=== PATIENT | male | born 1955 | race Caucasian/White ===

== ENCOUNTER 2018-12-13 06:56 | Observation (INO) | payer OTHER ==
[~2018-12-13] VITALS: Ht 185.4 cm; Wt 137.1 kg
[~2018-12-13 06:56] MED LIST: BLOOD PRESSURE MED PO; PAXIL30 MG PO; SIMVASTATIN20 MG PO; SYNTHROID50 MCG PO; WELLBUTRIN SR150 MG PO
[2018-12-13] MEDS ORDERED: CELECOXIB 200 MG CAP ONE (07:10)
[2018-12-13] MEDS ORDERED: DEXAMETHASONE SOD PHOS 10 MG/1 ML VIAL ONE (07:11)
[2018-12-13] MEDS ORDERED: CEFAZOLIN SOD 2 GM/D5W 50ML 50 ML IV ONE (07:11)
[2018-12-13] MEDS ORDERED: GABAPENTIN 300 MG CAP ONE (07:11)
[2018-12-13] MEDS ORDERED: FENOFIBRATE PO (07:20)
[2018-12-13] MEDS ORDERED: LISINOPRIL-HCT1 EACH PO (07:20)
[2018-12-13] MEDS ORDERED: ROPIVACAINE 246.25 MG, EPINEPHRINE HCL 1:1000 0.5 MG, CLONIDINE HCL 0.08 MG, KETOROLAC ... INJ ONE ×5 (07:30)
[2018-12-13] MEDS ORDERED: VANCOMYCIN HCL 500 MG ONE (09:43)
[2018-12-13] MEDS ORDERED: TRANEXAMIC ACID 1,000 MG/10 ML ML ONE (09:43)
[2018-12-13] MEDS ORDERED: BACITRACIN 50,000 UNIT VIAL ONE (09:44)
[2018-12-13] MEDS ORDERED: SODIUM CHLORIDE 0.9% 500ML 500 ML ONE (09:44)
[2018-12-13] MEDS ORDERED: KETOROLAC TROMETHAMINE 30 MG/ML VIAL IV PRN (12:00)
[2018-12-13] MEDS ORDERED: DIPHENHYDRAMINE HCL INJ 50 MG/ML VIAL IM/IV PRN (12:00)
[2018-12-13] MEDS ORDERED: ACETAMINOPHEN 650 MG SUPP PR PRN (12:00)
[2018-12-13] MEDS ORDERED: HYDROCODONE/APAP 5MG-325MG TAB PO PRN (12:00)
[2018-12-13] MEDS ORDERED: DOCUSATE SODIUM 100 MG CAP PO PRN (12:00)
[2018-12-13] MEDS ORDERED: ONDANSETRON HCL INJ 2 MG/ML VIAL IV PRN (12:00)
[2018-12-13] MEDS ORDERED: PROMETHAZINE HCL (IM) 25 MG/ML VIAL IM PRN (12:00)
[2018-12-13] MEDS ORDERED: HYDROMORPHONE 2MG/ML 2 MG/ML ML ONE (12:15)
--- NOTE | 2018-12-13 13:45 | NUR ---
PATIENT REC'D TO 105 AT THIS TIME FROM PACU. VSS WITH EVEN AND UNLABORED RESPIRATIONS ON 2LPNC. PT DENIES PAIN AT THIS TIME. DRESSING TO RLL IS C/D/I; ANAND HOSE INTACT; FOOT PUMPS ON. CALL LIGHT IN REACH WITH INSTRUCTIONS TO CALL FOR ASSISTANCE.
--- NOTE | 2018-12-13 13:47 | Diagnostic Imaging Report ---
Exam: Right knee 2 views History: Postoperative Comparison: None. Findings: See impression Impression: Post surgical changes related to total right knee arthroplasty with intact surgical hardware and no periprosthetic displaced fracture. Overlying skin lora and subcutaneous gas. Signed by: Dr. Evangelista Avendano M.D. on 12/13/2018 1:44 PM
[2018-12-13 14:00] VITALS: BP 121/60
[2018-12-13 14:09] VITALS: BP 121/60
--- NOTE | 2018-12-13 14:24 | Operative Report ---
DATE OF PROCEDURE: December 13, 2018 VALVE MAKER: Fermin Cruz PA-C The patient was brought to the operating room for induction of anesthesia. Throughout this case, my PA's assistance was necessary for retraction of soft tissue and positioning of the extremity. This allows for efficient and technically successful execution of the operation and is considered medically necessary. PREOPERATIVE DIAGNOSES 1. Osteoarthritis, right knee. 2. Morbid obesity. POSTOPERATIVE DIAGNOSES 1. Osteoarthritis, right knee. 2. Morbid obesity. PROCEDURE: Right total knee arthroplasty, *added complexity secondary to body mass index greater than 41. INDICATIONS: The patient is a 63-year-old gentleman with end-stage arthritis of his right knee. He has failed conservative management and would like to proceed with a right total knee replacement. The risks and benefits of the procedure have been discussed. The added potential for perioperative complications due to his BMI over 41 has been explained. He states he understands and wishes to proceed. He is working on weight loss. DESCRIPTION OF PROCEDURE: The patient was brought to the operating room and placed under general anesthetic. He received prophylactic antibiotics, a regional block and tranexamic acid in the holding area. His right lower extremity was prepped and draped in a sterile manner. A preoperative time out was performed. An anterior incision with a medial parapatellar arthrotomy was performed. Extensive chronic prepatellar bursitis was encountered. Soft-tissue releases were performed to bring the knee up into flexion with the patella everted. Added challenges were encountered due to the altered surgical field secondary to his body mass index. The cruciate ligaments were sacrificed. A Chavez and Nephew posterior stabilized Legion knee system was used throughout the case. An extramedullary cutting guide was used to resect the proximal tibia. The cut was referenced off of the medial compartment where there was exposed subchondral bone. The tibial baseplate was sized at a number 7 component. The central fin punch was impacted, and attention was directed towards the distal femur. An intramedullary cutting guide was used to resect the distal femur in 6 degrees of valgus and 3 degrees of external rotation. External rotation was also referenced off of the posterior condyle, the epicondylar axis and Emperatriz's line. The femoral component was a size number 8. The anterior, posterior, and notch cuts were made. Trial reductions were performed. A 9-mm posterior stabilized tibial insert was felt to provide appropriate soft-tissue balancing in flexion and extension. Once again, some challenges were encountered due to the patient's size. The patella was resurfaced with a 35-mm x 9-mm patellar button. The thickness was checked before and after and was 25 mm. Patellar tracking was noted to be concentric. The trial implants were then all removed. A 100-mL premixed pericapsular DEON injection was placed into the surrounding soft tissue. The knee was thoroughly irrigated with a shower-tip pulsatile lavage. Additional irrigation had been performed during the bone cuts using Polymycin and vancomycin. The components were cemented into place using a single mix of high-viscosity Simplex cement preloaded with antibiotics. Care was taken to remove extravasated cement. The wound was further irrigated while the cement cured. The arthrotomy was closed with interrupted #1 Ethibond. The knee was put through flexion and extension to ensure a secure closure. The skin was closed with subcuticular Vicryl and lora. A sterile Aquacel bandage was applied. The patient was extubated and transported to the recovery room in stable condition. Blood loss was minimal. All needle and sponge counts were correct. Job#: [id number]
[2018-12-13] MEDS: ACETAMINOPHEN 1000 MG/100 ML IV SCH ×3 (15:15→23:29)
[2018-12-13] MEDS: SODIUM CHLORIDE 0.9% 1000ML 1,000 ML IV SCH ×2 (15:15→21:46)
[2018-12-13] MEDS: ASPIRIN 325 MG TAB PO SCH (16:54)
[2018-12-13] MEDS: CELECOXIB 200 MG CAP PO SCH (16:54)
[2018-12-13] MEDS ORDERED: CELECOXIB 100 MG CAP PO SCH (17:00)
[2018-12-13] MEDS: CEFAZOLIN SOD 1 GM/D5W 50ML 50 ML IV SCH (17:34)
--- NOTE | 2018-12-13 17:40 | NUR ---
Dr. Khan contacted and made aware of consultation for medical management.
[2018-12-13] MEDS ORDERED: LIDOCAINE HCL 2% LOCAL 20 ML VIAL ONE (18:34)
[2018-12-13] MEDS ORDERED: BUPIVACAINE 0.5%/EPI 30 ML SDV INJ ONE (18:34)
[2018-12-13] MEDS ORDERED: EPINEPHRINE HCL INJ 1 MG/ML AMP ONE (18:34)
--- NOTE | 2018-12-13 18:48 | NUR ---
WALKING ROUNDS PERFORMED, RECEIVED PT LAYING SEMI FOWLERS IN BED, AAOX3, RR EVEN AND NON-LABORED, ON RA. NO S/SX OF DISTRESS NOTED. ALIS WRAP TO (R) LEG NOTED TO BE CDI. LEFT PT LAYING SEMI FOWLERS IN BED, BED IN LOW LOCKED POSITION, SIDE RAILS UPX2, CALL LIGHT AND PHONE WITHIN REACH.
--- NOTE | 2018-12-13 18:51 | NUR ---
HANDOFF REPORT AND WALKING ROUNDS WITH INCOMING TRIMMING MACHINE OPERATOR NURSE.
[2018-12-13] MEDS ORDERED: MIDAZOLAM HCL 2 MG/2 ML VIAL ONE (18:52)
[2018-12-13] MEDS ORDERED: FENTANYL CITRATE/PF 100MCG/2 ML INJ ONE (18:52)
[2018-12-13] MEDS ORDERED: ONDANSETRON HCL INJ 2 MG/ML VIAL ONE (19:24)
[2018-12-13] MEDS ORDERED: GLYCOPYRROLATE INJ 1MG/ 5 ML SYR ONE (19:24)
[2018-12-13] MEDS ORDERED: PROPOFOL IV EMULSION 10 MG/ML 20 ML VIAL ONE (19:24)
[2018-12-13] MEDS ORDERED: LIDOCAINE HCL 2% LOCAL INJ 5 ML SDV VIAL INJ ONE (19:24)
[2018-12-13] MEDS ORDERED: SEVOFLURANE INHAL SOLN 250 ML PEN BTL ONE (19:24)
[2018-12-13 20:00] VITALS: BP_SYST 114; BP_SYST 123; BP_DIAS 57; BP_DIAS 67
[2018-12-13 20:36] VITALS: BP 114/57
[2018-12-13] MEDS: CEPACOL SORE THROAT LOZENGES PO PRN (20:47)
[2018-12-13] MEDS ORDERED: ZOLPIDEM TARTRATE 5 MG TAB PO PRN (21:00)
[2018-12-14] VITALS: BP 100/56
[2018-12-14] MEDS: CEPACOL SORE THROAT LOZENGES PO PRN ×2 (00:50→04:25)
[2018-12-14] MEDS: HYDROCODONE/APAP 7.5MG-325MG 1 EA TAB PO PRN ×3 (01:00→11:05)
[2018-12-14] MEDS: CEFAZOLIN SOD 1 GM/D5W 50ML 50 ML IV SCH ×2 (02:00→10:45)
[2018-12-14 04:00] VITALS: BP 118/57
[2018-12-14] MEDS: ACETAMINOPHEN 1000 MG/100 ML IV SCH (04:24)
[2018-12-14 05:54] LABS: HEMATOCRIT 41.2 % (38.2-49.6); HEMOGLOBIN 13.7 g/dL (14.0-18.0)
--- NOTE | 2018-12-14 06:19 | NUR ---
ALIS WRAP FROM (R)LE REMOVED. DRESSING INTACT TO (R) KNEE. APPLIED ANAND HOSE TO (R)LE.
--- NOTE | 2018-12-14 07:00 | NUR ---
RECEIVED SHIFT CHANGE ROUNDING REPORT FROM NIGHT RN. PT DENIES NEEDS AT THIS TIME.
[2018-12-14 08:07] VITALS: BP 117/65
[2018-12-14] MEDS: SODIUM CHLORIDE 0.9% 1000ML 1,000 ML IV SCH (08:32)
[2018-12-14] MEDS: CELECOXIB 200 MG CAP PO SCH (08:33)
[2018-12-14] MEDS: ASPIRIN 325 MG TAB PO SCH (08:33)
[2018-12-14 09:00] VITALS: BP 117/65
[2018-12-14] MEDS ORDERED: ASPIRIN325 MG PO (09:07)
--- NOTE | 2018-12-14 10:52 | NUR ---
CASE MANAGEMENT INITIAL ASSESSMENT Wide Area Network Administrator to bedside to discuss plan of care with patient/family. CM/SW role and care transitions discussed. Anticipated discharge plan discussed along with duration of care. CM discussed patients right to make decisions in care. CM/SW work hours given. Patient lives: PATIENT LIVES IN 1 STORY HOME WITH IN [facility] Admit/Transfer: OR POA/Emergency contact: - RENNY BONNER- [phone] Current/Previous Home Health: [facility] PCP/Follow-up Care: DR. DEVAUGHN GOMEZ Current/Previous DME: [facility], [facility], 3-IN-1 [employer] Other Services: NONE Employment Status: EMPLOYED Areas of Concerns: NONE AT THIS TIME Referral Needs: NONE Education Needs: NONE IMM/SCHWARTZ given and signed (if applicable): CM SPOKE TO PATIENT AT BEDSIDE REGARDING SCHWARTZ LETTER. SCHWARTZ LETTER GIVEN WITH EXPLANATION. ORIGINAL SIGNED AND PLACED IN CHART; COPY OF ORIGINAL DOCUMENT GIVEN TO PATIENT AT BEDSIDE AND PLACED IN CARE TRANSITION FOLDER. CM CONTACT INFORMATION GIVEN TO PATIENT FOR ANY NEEDS OR CONCERNS. PATIENT WITH NO FURTHER QUESTIONS. Goal for discharge: PATIENT TO DISCHARGE WITH PRE-ARRANGED HOME HEALTH SERVICES AND DME DME PLUS SOLUTION : (WALKER WITH WHEELS, [facility], 3-IN-1 [employer]) (P) [phone] (F) [phone] [facility] (P)[phone] (F) [phone] CM left business card at the bedside with contact information. Name and number was also written on the patients whiteboard. Patient verbalized understanding of discussion. CM will follow-up with ongoing discharge and transition of care needs.
[2018-12-14] MEDS ORDERED: ACETAMINOPHEN 1000 MG/100 ML IV PRN (12:00)
[2018-12-14 13:06] VITALS: BP 132/78
[2018-12-14] MEDS ORDERED: NORCO 7.5-3251 EACH PO (13:47)
== END 2018-12-14 14:10 | disposition home health service (06) ==
LOC: OR 06:56 → PACU V 11:48 → MED/SURG 13:53
PROVIDERS: ADMIT Specialist; ATTEND Specialist
DX: M17.11 Unilateral primary osteoarthritis, right knee (principal); Z88.7 Allergy status to serum and vaccine; I10 Essential (primary) hypertension; J45.909 Unspecified asthma, uncomplicated; M16.12 Unilateral primary osteoarthritis, left hip; G47.33 Obstructive sleep apnea (adult) (pediatric); E78.5 Hyperlipidemia, unspecified; Z86.19 Personal history of other infectious and parasitic diseases; E66.01 Morbid (severe) obesity due to excess calories; Z68.41 Body mass index [BMI] 40.0-44.9, adult; Z01.812 Encounter for preprocedural laboratory examination; D64.9 Anemia, unspecified
CPT/HCPCS: 27447; 36415; 73560; 85014; 85018; 86850; 86900; 86920; 97110; 97116 ×2; 97161; 97530; C1713; G0378 ×2; J0131; J0171; J0690 ×3; J1100; J1170; J1885; J2001 ×2; J2250; J2405; J2704; J2795; J3370; J3490; J7030 ×2; J7040

== ENCOUNTER → 2019-01-26 | Outpatient (RCR) | payer OTHER ==
[~2019-01-26] MED LIST changes: +ASPIRIN325 MG PO; +FENOFIBRATE PO; +LISINOPRIL-HCT1 EACH PO; +NORCO 7.5-3251 EACH PO
== END ==
LOC: PT 01-13 12:14
PROVIDERS: ATTEND Specialist
DX: Z96.651 Presence of right artificial knee joint (principal); Z47.1 Aftercare following joint replacement surgery

== ENCOUNTER 2019-02-10 08:00 | Outpatient (RCR) | payer OTHER | END 2019-02-26 | LOC: PT 08:00 | PROVIDERS: ATTEND Specialist | DX: Z96.651 Presence of right artificial knee joint (principal); Z47.1 Aftercare following joint replacement surgery; M25.561 Pain in right knee; M25.461 Effusion, right knee; M62.81 Muscle weakness (generalized) ==

== ENCOUNTER → 2021-02-20 | Day surgery (SDC) | payer MEDICARE ==
[2021-02-17 09:54] LABS: BASOPHILS # (AUTO) 0.1 (0.0-0.1); BASOPHILS % 0.8 % (0.0-1.0); EOSINOPHILS # (AUTO) 0.2 (0.0-0.4); EOSINOPHILS % 2.4 % (0.0-6.0); HEMATOCRIT 53.6 % (38.2-49.6); LYMPHOCYTES % 12.8 % (18.0-39.1); MEAN CORPUSCULAR HEMOGLOBIN 32.6 pg (28-32); MEAN CORPUSCULAR HGB CONC 33.6 g/dL (31-35); MEAN CORPUSCULAR VOLUME 97.1 fL (81-99); MONOCYTES % 12.1 % (4.4-11.3); NEUTROPHILS # (AUTO) 5.6 (2.1-6.9); PLATELET COUNT 197 x10e3/uL (140-360); RED BLOOD COUNT 5.52 x10e6/uL (4.3-5.7); RED CELL DISTRIBUTION WIDTH 14.4 % (11.7-14.4)
[~2021-02-20] MED LIST changes: +ASPIRIN81 MG PO; +ATORVASTATIN CA20 MG PO; +CLOPIDOGREL75 MG PO; +LASIX40 MG PO; +LEVOTHYROXINE200 MCG PO; +LIDOCAINE HCL 2% LOCAL INJ 5 ML SDV VIAL INJ ONE; +LISINOPRIL-HCT1 EAC1 PO; +METOPROLOL SUCC25 MG PO; +MIDAZOLAM HCL 2 MG/2 ML VIAL ONE; +PROPOFOL IV EMULSION 10 MG/ML 20 ML VIAL ONE
[2021-02-20 11:25] VITALS: BP 129/84
== END | disposition home or self-care (01) ==
LOC: OR 07:32
PROVIDERS: ATTEND Internal Medicine Gastroenterology
DX: Z12.11 Encounter for screening for malignant neoplasm of colon (principal); D12.3 Benign neoplasm of transverse colon; D12.4 Benign neoplasm of descending colon; K57.30 Diverticulosis of large intestine without perforation or abscess without bleeding; K64.8 Other hemorrhoids; Z71.3 Dietary counseling and surveillance; G47.33 Obstructive sleep apnea (adult) (pediatric); I10 Essential (primary) hypertension; E66.01 Morbid (severe) obesity due to excess calories; E03.9 Hypothyroidism, unspecified; J45.909 Unspecified asthma, uncomplicated; I25.810 Atherosclerosis of coronary artery bypass graft(s) without angina pectoris; B19.10 Unspecified viral hepatitis B without hepatic coma; E78.5 Hyperlipidemia, unspecified; F32.9 Major depressive disorder, single episode, unspecified; Z88.7 Allergy status to serum and vaccine; Z01.810 Encounter for preprocedural cardiovascular examination; Z01.812 Encounter for preprocedural laboratory examination; Z20.822 Contact with and (suspected) exposure to COVID-19; Z79.02 Long term (current) use of antithrombotics/antiplatelets; Z79.82 Long term (current) use of aspirin; Z68.41 Body mass index [BMI] 40.0-44.9, adult; Z95.1 Presence of aortocoronary bypass graft
CPT/HCPCS: 36415; 45385; 85025; 93005; J2001; J2250; J2704; U0002; 45378; 45380

== ENCOUNTER 2022-01-21 09:00 | Outpatient (RCR) | payer MEDICARE ==
[~2022-01-21 09:00] MED LIST changes: -LIDOCAINE HCL 2% LOCAL INJ 5 ML SDV VIAL INJ ONE; -MIDAZOLAM HCL 2 MG/2 ML VIAL ONE; -PROPOFOL IV EMULSION 10 MG/ML 20 ML VIAL ONE
== END 2022-01-26 ==
LOC: PT 09:00
PROVIDERS: ATTEND Physician Assistant
DX: M16.0 Bilateral primary osteoarthritis of hip (principal); M54.50 Low back pain, unspecified; G89.29 Other chronic pain

== ENCOUNTER 2022-02-24 10:59 | Outpatient (RCR) | payer MEDICARE | END 2022-02-26 | LOC: PT 10:59 | PROVIDERS: ATTEND Physician Assistant | DX: M16.0 Bilateral primary osteoarthritis of hip (principal); M54.50 Low back pain, unspecified; G89.29 Other chronic pain ==

== ENCOUNTER 2022-03-06 08:56 | Outpatient (RCR) | payer MEDICARE | END 2022-03-28 | LOC: PT 08:56 | PROVIDERS: ATTEND Physician Assistant | DX: M16.0 Bilateral primary osteoarthritis of hip (principal); M54.50 Low back pain, unspecified; G89.29 Other chronic pain ==

== ENCOUNTER → 2022-03-31 | Day surgery (SDC) | payer MEDICARE ==
[2022-03-30 10:17] LABS: BASOPHILS # (AUTO) 0.1 (0.0-0.1); EOSINOPHILS # (AUTO) 0.4 (0.0-0.4); EOSINOPHILS % 4.5 % (0.0-6.0); HEMATOCRIT 51.2 % (38.2-49.6); HEMOGLOBIN 17.1 g/dL (14.0-18.0); LYMPHOCYTES # (AUTO) 1.5 (1.0-3.2); LYMPHOCYTES % 17.1 % (18.0-39.1); MEAN CORPUSCULAR HEMOGLOBIN 32.5 pg (28-32); MEAN CORPUSCULAR HGB CONC 33.4 g/dL (31-35); MEAN CORPUSCULAR VOLUME 97.3 fL (81-99); MONOCYTES # (AUTO) 1.2 (0.2-0.8); MONOCYTES % 13.3 % (4.4-11.3); NEUTROPHILS # (AUTO) 5.4 (2.1-6.9); NEUTROPHILS % 61.9 % (38.7-80.0); PLATELET COUNT 214 x10e3/uL (140-360); RED BLOOD COUNT 5.26 x10e6/uL (4.3-5.7); RED CELL DISTRIBUTION WIDTH 13.8 % (11.7-14.4)
[~2022-03-31] MED LIST changes: +BUPIVACAINE HCL 0.5% 10ML MPF VIAL INJ ONE; +FENTANYL CITRATE/PF 100MCG/2 ML INJ ONE; +IOPAMIDOL 200 MG/ML 20 ML VIAL IT ONE; +LIDOCAINE HCL 1% LOCAL INJ 20 ML VIAL ONE; +MIDAZOLAM HCL 2 MG/2 ML VIAL ONE; +POVIDONE IODINE 0.05% 0.05 % ML PO ONE; +PROPOFOL IV EMULSION 10 MG/ML 20 ML VIAL ONE; +TRIAMCINOLONE ACET 40 MG/ML VIAL ONE
[2022-03-31 10:55] VITALS: BP 142/88
== END ==
LOC: OR 07:29
PROVIDERS: ATTEND Specialist
DX: M16.12 Unilateral primary osteoarthritis, left hip (principal); I10 Essential (primary) hypertension; I25.10 Atherosclerotic heart disease of native coronary artery without angina pectoris; J45.909 Unspecified asthma, uncomplicated; Z01.812 Encounter for preprocedural laboratory examination; Z11.52 Encounter for screening for COVID-19; Z01.810 Encounter for preprocedural cardiovascular examination; Z79.899 Other long term (current) drug therapy; Z79.82 Long term (current) use of aspirin
CPT/HCPCS: 36415; 77002; 85025; 93005; J2001; J2250; J3010; J3301; Q9967; U0002

== ENCOUNTER 2022-12-28 06:18 | Observation (INO) | payer MEDICARE ==
[2022-12-25 10:21] LABS: BASOPHILS # (AUTO) 0.1 (0.0-0.1); BASOPHILS % 0.7 % (0.0-1.0); EOSINOPHILS # (AUTO) 0.3 (0.0-0.4); EOSINOPHILS % 2.3 % (0.0-6.0); HEMATOCRIT 51.8 % (38.2-49.6); HEMOGLOBIN 16.3 g/dL (14.0-18.0); LYMPHOCYTES # (AUTO) 1.2 (1.0-3.2); LYMPHOCYTES % 10.3 % (18.0-39.1); MEAN CORPUSCULAR HEMOGLOBIN 32.1 pg (28-32); MEAN CORPUSCULAR HGB CONC 31.5 g/dL (31-35); MONOCYTES # (AUTO) 1.3 (0.2-0.8); MONOCYTES % 11.6 % (4.4-11.3); NEUTROPHILS # (AUTO) 8.3 (2.1-6.9); NEUTROPHILS % 73.7 % (38.7-80.0); PLATELET COUNT 265 x10e3/uL (140-360); RED BLOOD COUNT 5.08 x10e6/uL (4.3-5.7); RED CELL DISTRIBUTION WIDTH 13.5 % (11.7-14.4)
[2022-12-25 10:38] LABS: ANION GAP 13.2 mmol/L (8-16); CALCIUM 9.7 mg/dL (8.4-10.2); CREATININE, SERUM 1.62 mg/dL (0.72-1.25); POTASSIUM 4.2 mmol/L (3.5-5.1)
[~2022-12-28] VITALS: Ht 185.4 cm; Wt 137.0 kg
[~2022-12-28 06:18] MED LIST changes: +AMIODARONE HCL200 MG PO; -BUPIVACAINE HCL 0.5% 10ML MPF VIAL INJ ONE; +CELEBREX200 MG PO; +ELIQUIS5 MG PO; -FENTANYL CITRATE/PF 100MCG/2 ML INJ ONE; -IOPAMIDOL 200 MG/ML 20 ML VIAL IT ONE; -LIDOCAINE HCL 1% LOCAL INJ 20 ML VIAL ONE; -MIDAZOLAM HCL 2 MG/2 ML VIAL ONE; -POVIDONE IODINE 0.05% 0.05 % ML PO ONE; +PRIMATENE ASTH1 EACH PO; -PROPOFOL IV EMULSION 10 MG/ML 20 ML VIAL ONE; +TESTOSTERO100 MG/1 M SC; -TRIAMCINOLONE ACET 40 MG/ML VIAL ONE
[2022-12-28] MEDS ORDERED: GABAPENTIN 300 MG CAP ONE (06:40)
[2022-12-28] MEDS ORDERED: DEXAMETHASONE SOD PHOS 10 MG/1 ML VIAL ONE (06:40)
[2022-12-28] MEDS ORDERED: CEFAZOLIN SODIUM 2 GM ONE (06:40)
[2022-12-28] MEDS ORDERED: CELECOXIB 200 MG CAP ONE (06:40)
[2022-12-28] MEDS ORDERED: SODIUM CHLORIDE 0.9% 500ML 500 ML ONE (07:24)
[2022-12-28] MEDS ORDERED: TRANEXAMIC ACID 20 ML ONE (07:24)
[2022-12-28] MEDS ORDERED: Vancomycin IV 1,000 MG ONE (07:24)
[2022-12-28] MEDS ORDERED: SUGAMMADEX SODIUM 200 MG/2 ML VIAL IV ONE (07:34)
[2022-12-28] MEDS ORDERED: ROPIVACAINE 246.25 MG, EPINEPHRINE HCL 1:1000 1ML 0.5 MG, CLONIDINE HCL 0.08 MG, KETORO... INJ ONE ×5 (08:00)
[2022-12-28] MEDS ORDERED: MIDAZOLAM HCL 2 MG/2 ML VIAL ONE (08:04)
[2022-12-28] MEDS ORDERED: FENTANYL CITRATE/PF 100MCG/2 ML INJ ONE ×3 (08:04→13:00)
[2022-12-28] MEDS ORDERED: HYDROMORPHONE 2MG/ML 2 MG/ML ML ONE (08:42)
[2022-12-28] MEDS ORDERED: DIPHENHYDRAMINE HCL INJ 50 MG/ML VIAL IV PRN (09:45)
[2022-12-28] MEDS ORDERED: HYDROCODONE/APAP 7.5MG-325MG 1 EA TAB PO PRN (09:45)
[2022-12-28] MEDS ORDERED: ZOLPIDEM TARTRATE 5 MG TAB PO PRN (09:45)
[2022-12-28] MEDS ORDERED: DOCUSATE SODIUM 100 MG CAP PO PRN (09:45)
[2022-12-28] MEDS ORDERED: SODIUM CHLORIDE 0.9% 1000ML 1,000 ML IV SCH (09:45)
[2022-12-28] MEDS ORDERED: ACETAMINOPHEN 650 MG SUPP PR PRN (09:45)
[2022-12-28] MEDS ORDERED: HYDROCODONE/APAP 5MG-325MG TAB PO PRN (09:45)
[2022-12-28] MEDS ORDERED: ONDANSETRON HCL INJ 2MG/ML 2ML 2 MG/ML VIAL IV PRN (09:45)
[2022-12-28 12:50] VITALS: BP_SYST 118; BP_SYST 119; BP_DIAS 60; BP_DIAS 90
[2022-12-28] MEDS ORDERED: KETOROLAC TROMETHAMINE 30 MG/ML VIAL ONE (12:55)
[2022-12-28] MEDS ORDERED: ETOMIDATE 2 MG/ML 10 ML INJ IV ONE (12:55)
[2022-12-28] MEDS ORDERED: PROPOFOL IV EMULSION 10 MG/ML 20 ML VIAL ONE (12:55)
[2022-12-28] MEDS ORDERED: ONDANSETRON HCL INJ 2MG/ML 2ML 2 MG/ML VIAL ONE (12:55)
[2022-12-28] MEDS ORDERED: ATROPINE SULFATE 1 MG/ML VIAL ONE (12:55)
[2022-12-28] MEDS ORDERED: NEOSTIGMINE 1 MG/ML 10ML VIAL ONE (12:55)
[2022-12-28] MEDS ORDERED: ROCURONIUM BROMIDE 10 MG/ML 5ML VIAL IV ONE (12:55)
[2022-12-28] MEDS ORDERED: DEXAMETHASONE SOD PHOS INJ 4 MG/ML SDV ONE (12:55)
[2022-12-28] MEDS ORDERED: LIDOCAINE HCL 2% LOCAL INJ 5 ML SDV VIAL INJ ONE (12:55)
[2022-12-28] MEDS ORDERED: METOCLOPRAMIDE HCL 10 MG/2ML VIAL ONE (12:55)
[2022-12-28] MEDS ORDERED: POVIDONE IODINE 0.05% 0.05 % ML PO ONE (12:55)
[2022-12-28] MEDS ORDERED: SEVOFLURANE INHAL SOLN 250 ML PEN BTL ONE (12:55)
[2022-12-28 12:59] VITALS: BP 119/60
[2022-12-28] MEDS ORDERED: ROPIVACAINE 0.5% 5 MG/ML 30 ML SDV ONE (13:00)
[2022-12-28 15:47] VITALS: BP 99/73
[2022-12-28] MEDS ORDERED: CELECOXIB 100 MG CAP PO SCH (17:00)
[2022-12-28] MEDS ORDERED: ASPIRIN 325 MG TAB PO SCH (17:00)
[2022-12-29] MEDS ORDERED: CELECOXIB 200 MG CAP PO SCH (09:00)
[2022-12-29] MEDS ORDERED: ACETAMINOPHEN 1000 MG/100 ML IV PRN (09:45)
== END 2022-12-28 19:02 | disposition home or self-care (01) ==
LOC: OR 06:18 → PACU V 09:45 → MED/SURG 12:50
PROVIDERS: ADMIT Specialist; ATTEND Specialist
DX: M16.12 Unilateral primary osteoarthritis, left hip (principal); I11.9 Hypertensive heart disease without heart failure; J45.909 Unspecified asthma, uncomplicated; Z79.899 Other long term (current) drug therapy; Z88.7 Allergy status to serum and vaccine; I25.10 Atherosclerotic heart disease of native coronary artery without angina pectoris; Z95.1 Presence of aortocoronary bypass graft; E03.9 Hypothyroidism, unspecified; E78.5 Hyperlipidemia, unspecified; E66.8 Other obesity; Z68.31 Body mass index [BMI] 31.0-31.9, adult
CPT/HCPCS: 0223U; 27130; 36415; 71046; 72170; 80048; 85025; 86850; 86900; 86920; 94799; 97116; 97161; 97530; C1713 ×2; C1776 ×2; G0378; J0171; J0461; J0690; J1100 ×2; J1170; J1200; J1885; J2001; J2250; J2405; J2704; J2710; J2765; J2795; J3010; J3370; J7030; J7040

== ENCOUNTER 2023-02-02 07:02 | Inpatient (IN) | payer MEDICARE ==
[2023-01-29 09:15] LABS: BASOPHILS # (AUTO) 0.1 (0.0-0.1); BASOPHILS % 0.6 % (0.0-1.0); EOSINOPHILS # (AUTO) 0.1 (0.0-0.4); EOSINOPHILS % 0.9 % (0.0-6.0); HEMATOCRIT 38.7 % (38.2-49.6); HEMOGLOBIN 12.5 g/dL (14.0-18.0); LYMPHOCYTES % 8.9 % (18.0-39.1); MEAN CORPUSCULAR HEMOGLOBIN 30.9 pg (28-32); MEAN CORPUSCULAR HGB CONC 32.3 g/dL (31-35); MEAN CORPUSCULAR VOLUME 95.8 fL (81-99); MONOCYTES # (AUTO) 0.7 (0.2-0.8); MONOCYTES % 6.1 % (4.4-11.3); NEUTROPHILS # (AUTO) 8.3 (2.1-6.9); NEUTROPHILS % 77.1 % (38.7-80.0); PLATELET COUNT 377 x10e3/uL (140-360); RED BLOOD COUNT 4.04 x10e6/uL (4.3-5.7); RED CELL DISTRIBUTION WIDTH 14.2 % (11.7-14.4)
[2023-01-29 09:40] LABS: ANION GAP 14.4 mmol/L (8-16); CALCIUM 8.7 mg/dL (8.4-10.2); CREATININE, SERUM 1.08 mg/dL (0.72-1.25); POTASSIUM 4.4 mmol/L (3.5-5.1)
[2023-01-29 11:16] LABS: BAND NEUTROPHILS % (MANUAL) 1 %; LYMPHOCYTES % (MANUAL) 12 % (19-48); METAMYELOCYTES % (MANUAL) 1 % (0-0); MONOCYTES % (MANUAL) 5 % (3.4-9.0); MYELOCYTES % (MANUAL) 4 % (0-0); NEUTROPHILS % (MANUAL) 72 % (40-74); PLATELET ESTIMATE ADEQUATE; RBC MORPHOLOGY COMMENT NORMAL
[2023-01-29 11:17] LABS: PLATELET MORPHOLOGY COMMENT FEW GIANT
[~2023-02-02] VITALS: Ht 185.4 cm; Wt 137.0 kg
[2023-02-02] MEDS ORDERED: Vancomycin IV 1 GM VIAL ONE (08:48)
[2023-02-02] MEDS ORDERED: CEFAZOLIN SODIUM 2 GM ONE (08:48)
[2023-02-02] MEDS ORDERED: SODIUM CHLORIDE 0.9% 250ML 250 ML ONE ×2 (08:48→22:26)
[2023-02-02] MEDS ORDERED: Vancomycin IV 1,000 MG ONE (10:29)
[2023-02-02] MEDS ORDERED: SODIUM CHLORIDE 0.9% 500ML 500 ML ONE (10:30)
[2023-02-02] MEDS ORDERED: TRANEXAMIC ACID 20 ML ONE (10:30)
[2023-02-02] MEDS ORDERED: SUGAMMADEX SODIUM 200 MG/2 ML VIAL IV ONE (10:59)
[2023-02-02] MEDS ORDERED: ACETAMINOPHEN 1000 MG/100 ML 100 ML IV ONE (11:00)
[2023-02-02] MEDS ORDERED: ZOLPIDEM TARTRATE 5 MG TAB PO PRN (12:30)
[2023-02-02] MEDS ORDERED: ONDANSETRON HCL INJ 2MG/ML 2ML 2 MG/ML VIAL IV PRN (12:30)
[2023-02-02] MEDS ORDERED: ACETAMINOPHEN 650 MG SUPP PR PRN (12:30)
[2023-02-02] MEDS ORDERED: HYDROCODONE/APAP 5MG-325MG TAB PO PRN (12:30)
[2023-02-02] MEDS ORDERED: DIPHENHYDRAMINE HCL INJ 50 MG/ML VIAL IV PRN (12:30)
[2023-02-02] MEDS ORDERED: SEVOFLURANE INHAL SOLN 250 ML PEN BTL ONE (12:54)
[2023-02-02] MEDS ORDERED: EPHEDRINE SULFATE INJ 50 MG/ML VIAL ONE (12:54)
[2023-02-02] MEDS ORDERED: PROPOFOL IV EMULSION 10 MG/ML 20 ML VIAL ONE (12:54)
[2023-02-02] MEDS ORDERED: DEXAMETHASONE SOD PHOS INJ 4 MG/ML SDV ONE (12:54)
[2023-02-02] MEDS ORDERED: ROCURONIUM BROMIDE 10 MG/ML 5ML VIAL IV ONE (12:54)
[2023-02-02] MEDS ORDERED: ONDANSETRON HCL INJ 2MG/ML 2ML 2 MG/ML VIAL ONE (12:54)
[2023-02-02] MEDS ORDERED: POVIDONE IODINE 0.05% 0.05 % ML PO ONE (12:54)
[2023-02-02] MEDS ORDERED: LIDOCAINE HCL 2% LOCAL INJ 5 ML SDV VIAL INJ ONE (12:54)
[2023-02-02] MEDS ORDERED: HYDROMORPHONE 1MG/1ML INJ ONE (13:13)
[2023-02-02] MEDS ORDERED: FENTANYL CITRATE/PF 100MCG/2 ML INJ ONE (13:24)
[2023-02-02 14:00] VITALS: BP_SYST 136; BP_SYST 148; BP_DIAS 100; BP_DIAS 79
[2023-02-02] MEDS: HYDROCODONE/APAP 7.5MG-325MG 1 EA TAB PO PRN (15:45)
[2023-02-02 16:34] VITALS: BP 139/93
[2023-02-02] MEDS: CELECOXIB 200 MG CAP PO SCH (17:07)
[2023-02-02] MEDS: DOCUSATE SODIUM 100 MG CAP PO PRN (17:07)
[2023-02-02] MEDS: ASPIRIN 325 MG TAB PO SCH (17:07)
[2023-02-02 20:37] VITALS: BP 119/72
[2023-02-02 20:38] VITALS: BP 119/72
[2023-02-02] MEDS: Vancomycin IV 1 GM in SODIUM CHLORIDE 0.9% 250ML 250 ML IV SCH (22:30)
[2023-02-03] VITALS: BP 119/80
[2023-02-03 04:48] LABS: HEMATOCRIT 33.5 % (38.2-49.6); HEMOGLOBIN 11.1 g/dL (14.0-18.0)
[2023-02-03] MEDS: LEVOTHYROXINE SODIUM 125 MCG TAB PO SCH (05:40)
[2023-02-03] MEDS: HYDROCODONE/APAP 7.5MG-325MG 1 EA TAB PO PRN ×3 (07:56→20:30)
[2023-02-03 08:00] VITALS: BP 129/95
[2023-02-03] MEDS ORDERED: ASPIRIN 81 MG CHEW TAB PO SCH (09:00)
[2023-02-03] MEDS: PAROXETINE HCL 20 MG TAB PO SCH (09:32)
[2023-02-03] MEDS: ASPIRIN 325 MG TAB PO SCH ×2 (09:32→16:17)
[2023-02-03] MEDS: CELECOXIB 200 MG CAP PO SCH ×2 (09:32→16:16)
[2023-02-03] MEDS: AMIODARONE HCL 200 MG TAB PO SCH ×2 (09:33→16:16)
[2023-02-03] MEDS: METOPROLOL SUCCINATE 50 MG TAB XL PO SCH (09:33)
[2023-02-03] MEDS: Vancomycin IV 1 GM in SODIUM CHLORIDE 0.9% 250ML 250 ML IV SCH (09:34)
[2023-02-03] MEDS: BUPROPION HCL 150 MG TABCR PO SCH (10:53)
[2023-02-03] MEDS ORDERED: ACETAMINOPHEN 1000 MG/100 ML IV PRN (12:30)
[2023-02-03] MEDS: DOCUSATE SODIUM 100 MG CAP PO PRN (15:35)
[2023-02-03 16:00] VITALS: BP 112/79
[2023-02-03 20:00] VITALS: BP 116/84
[2023-02-03] MEDS: ATORVASTATIN 40 MG TAB PO SCH (20:31)
[2023-02-03 23:02] VITALS: BP 116/84
[2023-02-04] VITALS (8 sets, daily range): BP systolic 110–137; BP diastolic 76–97
[2023-02-04] MEDS ORDERED: Vancomycin IV 1 GM in SODIUM CHLORIDE 0.9% 250ML 250 ML IV SCH (04:00)
[2023-02-04 06:29] LABS: HEMATOCRIT 32.8 % (38.2-49.6); HEMOGLOBIN 10.4 g/dL (14.0-18.0)
[2023-02-04] MEDS: HYDROCODONE/APAP 7.5MG-325MG 1 EA TAB PO PRN ×3 (10:11→21:08)
[2023-02-04] MEDS: LEVOTHYROXINE SODIUM 125 MCG TAB PO SCH (10:12)
[2023-02-04] MEDS: AMIODARONE HCL 200 MG TAB PO SCH ×2 (10:12→16:50)
[2023-02-04] MEDS: CELECOXIB 200 MG CAP PO SCH ×2 (10:12→16:50)
[2023-02-04] MEDS: BUPROPION HCL 150 MG TABCR PO SCH (10:12)
[2023-02-04] MEDS: ASPIRIN 325 MG TAB PO SCH ×2 (10:12→16:50)
[2023-02-04] MEDS: PAROXETINE HCL 20 MG TAB PO SCH (10:12)
[2023-02-04] MEDS: METOPROLOL SUCCINATE 50 MG TAB XL PO SCH (10:12)
[2023-02-04] MEDS ORDERED: ONDANSETRON HCL 4 MG ORAL DISINTEGRATING TAB PO PRN (11:15)
[2023-02-04] MEDS: DAPTOMYCIN 500mg 10ML 500 MG in SODIUM CHLORIDE 0.9% 100 ML IV SCH (16:46)
[2023-02-04] MEDS: ATORVASTATIN 40 MG TAB PO SCH (21:09)
[2023-02-04] MEDS: DOCUSATE SODIUM 100 MG CAP PO PRN (21:15)
[2023-02-05 00:56] VITALS: BP 105/69
[2023-02-05] MEDS: LEVOTHYROXINE SODIUM 125 MCG TAB PO SCH (05:04)
[2023-02-05] MEDS: HYDROCODONE/APAP 7.5MG-325MG 1 EA TAB PO PRN ×3 (05:04→16:44)
[2023-02-05 05:40] VITALS: BP 140/80
[2023-02-05 08:13] VITALS: BP 123/91
[2023-02-05 08:45] VITALS: BP 123/91
[2023-02-05] MEDS: CELECOXIB 200 MG CAP PO SCH ×2 (08:53→17:00)
[2023-02-05] MEDS: ASPIRIN 325 MG TAB PO SCH ×2 (08:53→17:00)
[2023-02-05] MEDS: AMIODARONE HCL 200 MG TAB PO SCH ×2 (08:54→17:00)
[2023-02-05] MEDS: PAROXETINE HCL 20 MG TAB PO SCH (08:54)
[2023-02-05] MEDS: BUPROPION HCL 150 MG TABCR PO SCH (08:55)
[2023-02-05] MEDS: METOPROLOL SUCCINATE 50 MG TAB XL PO SCH (08:55)
[2023-02-05] MEDS: DOCUSATE SODIUM 100 MG CAP PO PRN (09:11)
[2023-02-05 11:48] VITALS: BP 130/88
[2023-02-05] MEDS: DAPTOMYCIN 500mg 10ML 500 MG in SODIUM CHLORIDE 0.9% 100 ML IV SCH (14:30)
== END 2023-02-05 17:06 | disposition home or self-care (01) | DRG 464 ==
LOC: OR 07:02 → PACU V 12:25 → MED/SURG 13:43
PROVIDERS: ADMIT Specialist; ATTEND Specialist
PROC: 0JBM0ZZ Excision of Left Upper Leg Subcutaneous Tissue and Fascia, Open Approach (ICD-10-PCS; 2023-02-02)
PROC: 0SUE09Z Supplement Left Hip Joint, Acetabular Surface with Liner, Open Approach (ICD-10-PCS; 2023-02-02)
PROC: 02HV33Z Insertion of Infusion Device into Superior Vena Cava, Percutaneous Approach (ICD-10-PCS; 2023-02-02)
PROC: 0SPB09Z Removal of Liner from Left Hip Joint, Open Approach (ICD-10-PCS; principal; 2023-02-02 10:51)
DX: T84.52XA Infection and inflammatory reaction due to internal left hip prosthesis, initial encounter (principal); M00.9 Pyogenic arthritis, unspecified; B95.62 Methicillin resistant Staphylococcus aureus infection as the cause of diseases classified elsewhere; J45.909 Unspecified asthma, uncomplicated; M19.90 Unspecified osteoarthritis, unspecified site; E78.5 Hyperlipidemia, unspecified; E03.9 Hypothyroidism, unspecified; I11.0 Hypertensive heart disease with heart failure; I50.9 Heart failure, unspecified; D63.8 Anemia in other chronic diseases classified elsewhere; I25.10 Atherosclerotic heart disease of native coronary artery without angina pectoris; I48.91 Unspecified atrial fibrillation; F41.9 Anxiety disorder, unspecified; Z20.822 Contact with and (suspected) exposure to COVID-19; Z79.82 Long term (current) use of aspirin; Z79.01 Long term (current) use of anticoagulants; Z95.1 Presence of aortocoronary bypass graft
CPT/HCPCS: 0223U; 36415; 36569; 71045; 72170; 80048; 85014; 85018; 85025; 87071; 87075; 87186; 87205; 94799; C1713; C1776; J0696; J1100; J1170; J2001; J2405; J3370; J7040; J7050

== ENCOUNTER 2023-02-09 11:08 | Emergency (ER) | payer MEDICARE ==
[~2023-02-09] VITALS: Ht 185.4 cm; Wt 137.0 kg
[2023-02-09] MEDS ORDERED: ALTEPLASE RECOMBINANT 2 MG/2 ML VIAL IV PRN (12:00)
[2023-02-09] MEDS ORDERED: ALTEPLASE RECOMBINANT 2 MG/2 ML VIAL IV STA (12:38)
== END 2023-02-09 17:21 | disposition home or self-care (01) ==
LOC: ER 11:11
DX: Z45.2 Encounter for adjustment and management of vascular access device (principal); T82.898A Other specified complication of vascular prosthetic devices, implants and grafts, initial encounter
CPT/HCPCS: 99282; J2997

== ENCOUNTER → 2023-03-29 | Day surgery (SDC) | payer MEDICARE ==
[2023-03-25 09:10] LABS: BASOPHILS # (AUTO) 0.1 (0.0-0.1); BASOPHILS % 0.7 % (0.0-1.0); EOSINOPHILS # (AUTO) 0.1 (0.0-0.4); EOSINOPHILS % 0.9 % (0.0-6.0); HEMATOCRIT 36.1 % (38.2-49.6); HEMOGLOBIN 11.9 g/dL (14.0-18.0); LYMPHOCYTES # (AUTO) 2.1 (1.0-3.2); LYMPHOCYTES % 14.7 % (18.0-39.1); MEAN CORPUSCULAR HEMOGLOBIN 28.8 pg (28-32); MEAN CORPUSCULAR VOLUME 87.4 fL (81-99); MONOCYTES # (AUTO) 1.2 (0.2-0.8); MONOCYTES % 8.6 % (4.4-11.3); NEUTROPHILS # (AUTO) 9.7 (2.1-6.9); NEUTROPHILS % 68.9 % (38.7-80.0); PLATELET COUNT 439 x10e3/uL (140-360); RED BLOOD COUNT 4.13 x10e6/uL (4.3-5.7); RED CELL DISTRIBUTION WIDTH 16.1 % (11.7-14.4)
[2023-03-25 10:05] LABS: ANION GAP 15.1 mmol/L (8-16); CALCIUM 9.4 mg/dL (8.4-10.2); CREATININE, SERUM 1.36 mg/dL (0.72-1.25); POTASSIUM 4.1 mmol/L (3.5-5.1)
[2023-03-25 12:59] LABS: EOSINOPHILS % (MANUAL) 1 % (0-7); LYMPHOCYTES % (MANUAL) 17 % (19-48); METAMYELOCYTES % (MANUAL) 1 % (0-0); MONOCYTES % (MANUAL) 6 % (3.4-9.0); MYELOCYTES % (MANUAL) 1 % (0-0); NEUTROPHILS % (MANUAL) 73 % (40-74); NUCLEATED RED BLOOD CELLS 1
[2023-03-25 13:00] LABS: PLATELET ESTIMATE ADEQUATE; PLATELET MORPHOLOGY COMMENT NORMAL; RBC MORPHOLOGY COMMENT NORMAL
[~2023-03-29] MED LIST changes: +FENTANYL CITRATE/PF 100MCG/2 ML INJ ONE; +KETAMINE HCL INJ 50 MG/ML 10 ML VIAL ONE; +LACTATED RINGER'S 1,000 ML ONE; +MIDAZOLAM HCL 2 MG/2 ML VIAL ONE; +PHENYLEPHRINE HCL 1% 10 MG/ML VIAL ONE; +POVIDONE IODINE 0.05% 0.05 % ML PO ONE; +PROPOFOL IV EMULSION 10 MG/ML 20 ML VIAL ONE
[2023-03-29 08:30] VITALS: BP 106/68
== END | disposition home or self-care (01) ==
LOC: OR 07:18
PROVIDERS: ATTEND Specialist
DX: T84.52XA Infection and inflammatory reaction due to internal left hip prosthesis, initial encounter (principal); A49.02 Methicillin resistant Staphylococcus aureus infection, unspecified site; J45.909 Unspecified asthma, uncomplicated; I10 Essential (primary) hypertension; Z88.7 Allergy status to serum and vaccine; Y83.1 Surgical operation with implant of artificial internal device as the cause of abnormal reaction of the patient, or of later complication, without mention of misadventure at the time of the procedure; Z01.812 Encounter for preprocedural laboratory examination; Z79.02 Long term (current) use of antithrombotics/antiplatelets; Z79.82 Long term (current) use of aspirin; Z79.899 Other long term (current) drug therapy; Z68.37 Body mass index [BMI] 37.0-37.9, adult
CPT/HCPCS: 20610; 36415; 77002; 80048; 85025; 87071; 87075; 87186; 87205; 93005 ×2; J2250; J2370; J2704; J3010; J7121; 76000

== ENCOUNTER → 2023-04-19 | Outpatient (CLI) | payer MEDICARE ==
[2023-04-16 09:00] LABS: BASOPHILS # (AUTO) 0.1 (0.0-0.1); BASOPHILS % 0.5 % (0.0-1.0); EOSINOPHILS # (AUTO) 0.2 (0.0-0.4); EOSINOPHILS % 1.8 % (0.0-6.0); HEMATOCRIT 33.3 % (38.2-49.6); HEMOGLOBIN 10.5 g/dL (14.0-18.0); LYMPHOCYTES # (AUTO) 0.9 (1.0-3.2); LYMPHOCYTES % 8.6 % (18.0-39.1); MEAN CORPUSCULAR HEMOGLOBIN 27.9 pg (28-32); MEAN CORPUSCULAR HGB CONC 31.5 g/dL (31-35); MEAN CORPUSCULAR VOLUME 88.3 fL (81-99); MONOCYTES # (AUTO) 0.8 (0.2-0.8); MONOCYTES % 7.3 % (4.4-11.3); NEUTROPHILS # (AUTO) 8.8 (2.1-6.9); NEUTROPHILS % 80.2 % (38.7-80.0); PLATELET COUNT 324 x10e3/uL (140-360); RED BLOOD COUNT 3.77 x10e6/uL (4.3-5.7); RED CELL DISTRIBUTION WIDTH 17.2 % (11.7-14.4)
[2023-04-16 09:18] LABS: ANION GAP 13.1 mmol/L (8-16); CREATININE, SERUM 1.05 mg/dL (0.72-1.25); POTASSIUM 3.1 mmol/L (3.5-5.1)
[~2023-04-19] MED LIST changes: +ACETAMINOPHEN 1000 MG/100 ML 0 ML IV ONE; +CELECOXIB 200 MG CAP ONE; +DEXAMETHASONE SOD PHOS 10 MG/1 ML VIAL ONE; -FENTANYL CITRATE/PF 100MCG/2 ML INJ ONE; +GABAPENTIN 300 MG CAP ONE; -KETAMINE HCL INJ 50 MG/ML 10 ML VIAL ONE; +LACTATED RINGER'S 0 ML ONE; -LACTATED RINGER'S 1,000 ML ONE; -MIDAZOLAM HCL 2 MG/2 ML VIAL ONE; -PHENYLEPHRINE HCL 1% 10 MG/ML VIAL ONE; -POVIDONE IODINE 0.05% 0.05 % ML PO ONE; -PROPOFOL IV EMULSION 10 MG/ML 20 ML VIAL ONE; +ROPIVACAINE 246.25 MG, EPINEPHRINE HCL 1:1000 1ML 0.5 MG, CLONIDINE HCL 0.08 MG, KETORO... INJ ONE; +SODIUM CHLORIDE 0.9% 250ML 250 ML ONE; +TOBRAMYCIN 1.2GM BULK BOTTLE ONE; +Vancomycin IV 1 GM VIAL ONE
== END | disposition home or self-care (01) ==
LOC: EDSTATUS 09:00 → RAD 09:17 → OR 09:17
PROVIDERS: ATTEND Specialist
DX: T84.52XA Infection and inflammatory reaction due to internal left hip prosthesis, initial encounter (principal); Y83.8 Other surgical procedures as the cause of abnormal reaction of the patient, or of later complication, without mention of misadventure at the time of the procedure; Z01.812 Encounter for preprocedural laboratory examination; Z53.8 Procedure and treatment not carried out for other reasons
CPT/HCPCS: 36415; 80048; 85025; 86850; 86900; 86920; J0171; J1100; J1885; J2795; J7050

== ENCOUNTER 2023-04-29 09:12 | Inpatient (IN) | payer MEDICARE ==
[~2023-04-29] VITALS: Ht 188 cm; Wt 124.7 kg
[~2023-04-29 09:12] MED LIST changes: -ACETAMINOPHEN 1000 MG/100 ML 0 ML IV ONE; -CELECOXIB 200 MG CAP ONE; -DEXAMETHASONE SOD PHOS 10 MG/1 ML VIAL ONE; -GABAPENTIN 300 MG CAP ONE; -LACTATED RINGER'S 0 ML ONE; -SODIUM CHLORIDE 0.9% 250ML 250 ML ONE; -TOBRAMYCIN 1.2GM BULK BOTTLE ONE; -Vancomycin IV 1 GM VIAL ONE
[2023-04-29] MEDS ORDERED: GABAPENTIN 300 MG CAP ONE (09:49)
[2023-04-29] MEDS ORDERED: DEXAMETHASONE SOD PHOS 10 MG/1 ML VIAL ONE (09:49)
[2023-04-29] MEDS ORDERED: CELECOXIB 200 MG CAP ONE (09:49)
[2023-04-29] MEDS ORDERED: LACTATED RINGER'S 1,000 ML ONE (09:50)
[2023-04-29] MEDS ORDERED: Vancomycin IV 1 GM VIAL ONE ×2 (09:50→11:55)
[2023-04-29] MEDS ORDERED: SODIUM CHLORIDE 0.9% 250ML 250 ML ONE (09:50)
[2023-04-29] MEDS ORDERED: SODIUM CHLORIDE 0.9% 500ML 500 ML ONE (11:55)
[2023-04-29] MEDS ORDERED: TRANEXAMIC ACID 20 ML ONE (11:55)
[2023-04-29] MEDS ORDERED: Vancomycin IV 500 MG ONE (11:55)
[2023-04-29] MEDS ORDERED: ACETAMINOPHEN 1000 MG/100 ML 100 ML IV ONE (12:26)
[2023-04-29] MEDS ORDERED: HYDROMORPHONE 1MG/1ML INJ ONE (12:26)
[2023-04-29] MEDS ORDERED: LIDOCAINE HCL 2% LOCAL INJ 5 ML SDV VIAL INJ ONE (12:29)
[2023-04-29] MEDS ORDERED: SEVOFLURANE INHAL SOLN 250 ML PEN BTL ONE (12:29)
[2023-04-29] MEDS ORDERED: ONDANSETRON HCL INJ 2MG/ML 2ML 2 MG/ML VIAL ONE (12:29)
[2023-04-29] MEDS ORDERED: NEOSTIGMINE 1 MG/ML 10ML VIAL ONE (12:29)
[2023-04-29] MEDS ORDERED: GLYCOPYRROLATE INJ 0.2 MG/ML VIAL ONE (12:29)
[2023-04-29] MEDS ORDERED: DEXAMETHASONE SOD PHOS INJ 4 MG/ML SDV ONE (12:29)
[2023-04-29] MEDS ORDERED: ROCURONIUM BROMIDE 10 MG/ML 5ML VIAL IV ONE (12:29)
[2023-04-29] MEDS ORDERED: POVIDONE IODINE 0.05% 0.05 % ML PO ONE (12:29)
[2023-04-29] MEDS ORDERED: PROPOFOL IV EMULSION 10 MG/ML 20 ML VIAL ONE (12:29)
[2023-04-29] MEDS ORDERED: PHENYLEPHRINE HCL 1% 10 MG/ML VIAL ONE (12:29)
[2023-04-29] MEDS ORDERED: FENTANYL CITRATE/PF 100MCG/2 ML INJ ONE (13:10)
[2023-04-29] MEDS ORDERED: TOBRAMYCIN 1.2GM BULK BOTTLE ONE (13:13)
[2023-04-29] MEDS ORDERED: ONDANSETRON HCL INJ 2MG/ML 2ML 2 MG/ML VIAL IV PRN (15:45)
[2023-04-29] MEDS ORDERED: DIPHENHYDRAMINE HCL INJ 50 MG/ML VIAL IV PRN (15:45)
[2023-04-29] MEDS ORDERED: ACETAMINOPHEN 650 MG SUPP PR PRN (15:45)
[2023-04-29] MEDS ORDERED: ZOLPIDEM TARTRATE 5 MG TAB PO PRN (15:45)
[2023-04-29 17:35] VITALS: PULSE 94; RESP 18; O2SAT 96
[2023-04-29] MEDS: CELECOXIB 200 MG CAP PO SCH (18:23)
[2023-04-29] MEDS: SODIUM CHLORIDE 0.9% 1000ML 1,000 ML IV SCH (18:24)
[2023-04-29 18:33] VITALS: BP 108/72; PULSE 96; RESP 16; TEMP 97.5; O2SAT 97
[2023-04-29 18:39] VITALS: BP 108/72; PULSE 96; RESP 16; TEMP 97.5; O2SAT 97
[2023-04-29 19:30] VITALS: BP 97/74; PULSE 66; RESP 20; TEMP 97.3; O2SAT 97
[2023-04-29 19:50] VITALS: PULSE 66; RESP 18; O2SAT 97
[2023-04-29 20:00] VITALS: BP 97/74; PULSE 66; RESP 20; TEMP 97.3; O2SAT 97
[2023-04-29] MEDS: APIXABAN 5 MG TABLET PO SCH (23:56)
[2023-04-29] MEDS: Vancomycin IV 1 GM in SODIUM CHLORIDE 0.9% 250ML 250 ML IV SCH (23:57)
[2023-04-30] VITALS (9 sets, daily range): BP systolic 96–128; BP diastolic 67–91; PULSE 50–108; RESP 18–20; TEMP 97.7–98.4; O2SAT 92–98
[2023-04-30] MEDS: SODIUM CHLORIDE 0.9% 1000ML 1,000 ML IV SCH ×2 (05:04→16:39)
[2023-04-30 05:07] LABS: BASOPHILS % 0.1 % (0.0-1.0); HEMATOCRIT 24.9 % (38.2-49.6); HEMOGLOBIN 8.4 g/dL (14.0-18.0); LYMPHOCYTES # (AUTO) 0.7 (1.0-3.2); MEAN CORPUSCULAR HEMOGLOBIN 26.8 pg (28-32); MEAN CORPUSCULAR HGB CONC 33.7 g/dL (31-35); MEAN CORPUSCULAR VOLUME 79.3 fL (81-99); MONOCYTES # (AUTO) 0.6 (0.2-0.8); MONOCYTES % 4.1 % (4.4-11.3); NEUTROPHILS # (AUTO) 12.1 (2.1-6.9); NEUTROPHILS % 85.6 % (38.7-80.0); PLATELET COUNT 177 x10e3/uL (140-360); RED BLOOD COUNT 3.14 x10e6/uL (4.3-5.7); RED CELL DISTRIBUTION WIDTH 18.2 % (11.7-14.4)
[2023-04-30 05:39] LABS: ALBUMIN 1.3 g/dL (3.5-5.0); ALBUMIN/GLOBULIN RATIO 0.3 (0.8-2.0); ANION GAP 10.4 mmol/L (8-16); CALCIUM 7.7 mg/dL (8.4-10.2); CREATININE, SERUM 1.16 mg/dL (0.72-1.25); MAGNESIUM 1.9 MG/DL (1.3-2.1); POTASSIUM 3.4 mmol/L (3.5-5.1)
[2023-04-30] MEDS ORDERED: LEVOTHYROXINE SODIUM 125 MCG TAB PO SCH (06:00)
[2023-04-30] MEDS: AMIODARONE HCL 200 MG TAB PO SCH ×2 (08:45→16:39)
[2023-04-30] MEDS: HYDROCODONE/APAP 7.5MG-325MG 1 EA TAB PO PRN ×2 (08:45→18:40)
[2023-04-30] MEDS: PAROXETINE HCL 20 MG TAB PO SCH (08:46)
[2023-04-30] MEDS: APIXABAN 5 MG TABLET PO SCH ×2 (08:46→16:39)
[2023-04-30] MEDS: BUPROPION HCL SR 150 MG TAB PO SCH (08:47)
[2023-04-30] MEDS: CELECOXIB 200 MG CAP PO SCH ×2 (08:47→16:38)
[2023-04-30] MEDS: LEVOTHYROXINE SODIUM 112 MCG TAB PO SCH (11:57)
[2023-04-30] MEDS: Vancomycin IV 1 GM in SODIUM CHLORIDE 0.9% 250ML 250 ML IV SCH ×2 (11:57→21:30)
[2023-04-30 13:05] LABS: HEMATOCRIT 25.2 % (38.2-49.6); HEMOGLOBIN 8.5 g/dL (14.0-18.0)
[2023-04-30] MEDS: DOCUSATE SODIUM 100 MG CAP PO PRN (13:49)
[2023-04-30] MEDS ORDERED: ACETAMINOPHEN 1000 MG/100 ML IV PRN (15:45)
[2023-04-30] MEDS: ATORVASTATIN 20 MG TAB PO SCH (21:32)
[2023-04-30] MEDS: KETOROLAC TROMETHAMINE 30 MG/ML VIAL IV PRN (21:52)
[2023-05-01] VITALS (9 sets, daily range): BP systolic 106–121; BP diastolic 72–85; PULSE 64–94; RESP 16–20; TEMP 97.7–97.9; O2SAT 95–99
[2023-05-01] MEDS: SODIUM CHLORIDE 0.9% 1000ML 1,000 ML IV SCH ×2 (06:15→10:00)
[2023-05-01] MEDS: LEVOTHYROXINE SODIUM 112 MCG TAB PO SCH (06:15)
[2023-05-01] MEDS: KETOROLAC TROMETHAMINE 30 MG/ML VIAL IV PRN (06:29)
[2023-05-01 06:35] LABS: HEMATOCRIT 24.4 % (38.2-49.6); HEMOGLOBIN 8.1 g/dL (14.0-18.0)
[2023-05-01] MEDS: APIXABAN 5 MG TABLET PO SCH ×2 (08:28→16:40)
[2023-05-01] MEDS: HYDROCODONE/APAP 5MG-325MG TAB PO PRN ×3 (08:28→17:38)
[2023-05-01] MEDS: CELECOXIB 200 MG CAP PO SCH ×2 (08:29→16:40)
[2023-05-01] MEDS: PAROXETINE HCL 20 MG TAB PO SCH (08:29)
[2023-05-01] MEDS: BUPROPION HCL SR 150 MG TAB PO SCH (08:29)
[2023-05-01] MEDS: AMIODARONE HCL 200 MG TAB PO SCH ×2 (08:30→16:40)
[2023-05-01] MEDS: DOCUSATE SODIUM 100 MG CAP PO PRN ×2 (08:33→17:38)
[2023-05-01] MEDS: Vancomycin IV 1 GM in SODIUM CHLORIDE 0.9% 250ML 250 ML IV SCH ×2 (08:37→21:50)
[2023-05-01] MEDS: ATORVASTATIN 20 MG TAB PO SCH (21:51)
[2023-05-02] VITALS (10 sets, daily range): BP systolic 103–129; BP diastolic 60–76; PULSE 82–95; RESP 16–18; TEMP 97.2–98.4; O2SAT 98–99
[2023-05-02] MEDS: HYDROCODONE/APAP 5MG-325MG TAB PO PRN ×3 (03:11→17:31)
[2023-05-02] MEDS: SODIUM CHLORIDE 0.9% 1000ML 1,000 ML IV SCH ×3 (03:12→17:28)
[2023-05-02 06:03] LABS: BASOPHILS % 0.1 % (0.0-1.0); EOSINOPHILS # (AUTO) 0.1 (0.0-0.4); EOSINOPHILS % 0.5 % (0.0-6.0); HEMATOCRIT 22.7 % (38.2-49.6); HEMOGLOBIN 7.6 g/dL (14.0-18.0); LYMPHOCYTES # (AUTO) 0.7 (1.0-3.2); LYMPHOCYTES % 5.2 % (18.0-39.1); MEAN CORPUSCULAR HEMOGLOBIN 26.8 pg (28-32); MEAN CORPUSCULAR HGB CONC 33.5 g/dL (31-35); MEAN CORPUSCULAR VOLUME 79.9 fL (81-99); MONOCYTES # (AUTO) 0.6 (0.2-0.8); MONOCYTES % 4.4 % (4.4-11.3); NEUTROPHILS # (AUTO) 11.1 (2.1-6.9); NEUTROPHILS % 86.5 % (38.7-80.0); PLATELET COUNT 155 x10e3/uL (140-360); RED BLOOD COUNT 2.84 x10e6/uL (4.3-5.7); RED CELL DISTRIBUTION WIDTH 18.7 % (11.7-14.4)
[2023-05-02 06:15] LABS: CALCIUM 7.5 mg/dL (8.4-10.2); CREATININE, SERUM 0.95 mg/dL (0.72-1.25)
[2023-05-02] MEDS: LEVOTHYROXINE SODIUM 112 MCG TAB PO SCH (06:35)
[2023-05-02] MEDS: BUPROPION HCL SR 150 MG TAB PO SCH (08:20)
[2023-05-02] MEDS: AMIODARONE HCL 200 MG TAB PO SCH ×2 (08:20→17:25)
[2023-05-02] MEDS: PAROXETINE HCL 20 MG TAB PO SCH (08:21)
[2023-05-02] MEDS: APIXABAN 5 MG TABLET PO SCH ×2 (08:21→17:25)
[2023-05-02] MEDS: CELECOXIB 200 MG CAP PO SCH ×2 (08:21→17:25)
[2023-05-02] MEDS: DOCUSATE SODIUM 100 MG CAP PO PRN ×2 (08:32→17:31)
[2023-05-02] MEDS: Vancomycin IV 1 GM in SODIUM CHLORIDE 0.9% 250ML 250 ML IV SCH ×2 (10:24→21:12)
[2023-05-02] MEDS: KETOROLAC TROMETHAMINE 30 MG/ML VIAL IV PRN (11:50)
[2023-05-02] MEDS: IRON SUCROSE 100 MG in SODIUM CHLORIDE 0.9% 100 ML IV SCH (17:23)
[2023-05-02] MEDS: SODIUM CHLORIDE 1 GM TAB PO SCH (17:25)
[2023-05-02] MEDS: ATORVASTATIN 20 MG TAB PO SCH (21:11)
[2023-05-02] MEDS: HYDROCODONE/APAP 7.5MG-325MG 1 EA TAB PO PRN (21:12)
[2023-05-03] VITALS (9 sets, daily range): BP systolic 97–139; BP diastolic 66–86; PULSE 89–95; RESP 18–21; TEMP 97–98.7; O2SAT 97–100
[2023-05-03] MEDS: SODIUM CHLORIDE 0.9% 1000ML 1,000 ML IV SCH ×3 (02:11→23:21)
[2023-05-03] MEDS: LEVOTHYROXINE SODIUM 112 MCG TAB PO SCH (06:00)
[2023-05-03 06:21] LABS: BASOPHILS % 0.3 % (0.0-1.0); EOSINOPHILS # (AUTO) 0.1 (0.0-0.4); EOSINOPHILS % 0.7 % (0.0-6.0); LYMPHOCYTES # (AUTO) 0.7 (1.0-3.2); LYMPHOCYTES % 5.2 % (18.0-39.1); MEAN CORPUSCULAR HGB CONC 32.9 g/dL (31-35); MONOCYTES # (AUTO) 0.6 (0.2-0.8); MONOCYTES % 4.7 % (4.4-11.3); NEUTROPHILS # (AUTO) 10.7 (2.1-6.9); NEUTROPHILS % 83.3 % (38.7-80.0); PLATELET COUNT 114 x10e3/uL (140-360); RED BLOOD COUNT 2.56 x10e6/uL (4.3-5.7)
[2023-05-03 06:27] LABS: HEMOGLOBIN 6.9 g/dL (14.0-18.0)
[2023-05-03 06:30] LABS: ALBUMIN/GLOBULIN RATIO 0.3 (0.8-2.0); ANION GAP 6.7 mmol/L (8-16); CREATININE, SERUM 0.87 mg/dL (0.72-1.25); MAGNESIUM 1.6 MG/DL (1.3-2.1); POTASSIUM 3.7 mmol/L (3.5-5.1)
[2023-05-03] MEDS: Vancomycin IV 1 GM in SODIUM CHLORIDE 0.9% 250ML 250 ML IV SCH ×2 (08:43→20:46)
[2023-05-03] MEDS: AMIODARONE HCL 200 MG TAB PO SCH ×2 (08:44→16:20)
[2023-05-03] MEDS: APIXABAN 5 MG TABLET PO SCH ×2 (08:44→16:20)
[2023-05-03] MEDS: SODIUM CHLORIDE 1 GM TAB PO SCH ×2 (08:44→16:21)
[2023-05-03] MEDS: CELECOXIB 200 MG CAP PO SCH ×2 (08:44→16:20)
[2023-05-03] MEDS: PAROXETINE HCL 20 MG TAB PO SCH (08:44)
[2023-05-03] MEDS: BUPROPION HCL SR 150 MG TAB PO SCH (08:44)
[2023-05-03] MEDS: HYDROCODONE/APAP 7.5MG-325MG 1 EA TAB PO PRN ×3 (08:53→20:45)
[2023-05-03] MEDS: DOCUSATE SODIUM 100 MG CAP PO PRN (08:53)
[2023-05-03] MEDS ORDERED: ONDANSETRON HCL 4 MG ORAL DISINTEGRATING TAB PO PRN (09:00)
[2023-05-03 09:50] LABS: LYMPHOCYTES % (MANUAL) 2 % (19-48); NEUTROPHILS % (MANUAL) 98 % (40-74); PLATELET ESTIMATE SLIGHTLY DECREASED; PLATELET MORPHOLOGY COMMENT NORMAL; RBC MORPHOLOGY COMMENT NORMAL
[2023-05-03] MEDS: IRON SUCROSE 100 MG in SODIUM CHLORIDE 0.9% 100 ML IV SCH (16:20)
[2023-05-03 17:15] LABS: ANION GAP 7.3 mmol/L (8-16); CALCIUM 7.6 mg/dL (8.4-10.2); CREATININE, SERUM 0.99 mg/dL (0.72-1.25); POTASSIUM 4.3 mmol/L (3.5-5.1)
[2023-05-03] MEDS: ATORVASTATIN 20 MG TAB PO SCH (20:46)
[2023-05-04] MEDS: LEVOTHYROXINE SODIUM 112 MCG TAB PO SCH (06:10)
[2023-05-04 06:46] LABS: BASOPHILS % 0.1 % (0.0-1.0); EOSINOPHILS # (AUTO) 0.1 (0.0-0.4); EOSINOPHILS % 0.9 % (0.0-6.0); HEMATOCRIT 22.6 % (38.2-49.6); HEMOGLOBIN 7.5 g/dL (14.0-18.0); LYMPHOCYTES # (AUTO) 0.7 (1.0-3.2); MEAN CORPUSCULAR HEMOGLOBIN 26.6 pg (28-32); MEAN CORPUSCULAR HGB CONC 33.2 g/dL (31-35); MEAN CORPUSCULAR VOLUME 80.1 fL (81-99); MONOCYTES # (AUTO) 0.6 (0.2-0.8); MONOCYTES % 3.9 % (4.4-11.3); NEUTROPHILS # (AUTO) 12.6 (2.1-6.9); NEUTROPHILS % 85.4 % (38.7-80.0); PLATELET COUNT 115 x10e3/uL (140-360); RED BLOOD COUNT 2.82 x10e6/uL (4.3-5.7); RED CELL DISTRIBUTION WIDTH 19.6 % (11.7-14.4)
[2023-05-04 07:04] LABS: ALBUMIN 1.1 g/dL (3.5-5.0); ALBUMIN/GLOBULIN RATIO 0.3 (0.8-2.0); ANION GAP 7.3 mmol/L (8-16); CALCIUM 7.7 mg/dL (8.4-10.2); MAGNESIUM 1.8 MG/DL (1.3-2.1); POTASSIUM 4.3 mmol/L (3.5-5.1)
[2023-05-04 08:00] VITALS: BP 131/81; PULSE 93; RESP 21; TEMP 97.9; O2SAT 99
[2023-05-04 09:10] VITALS: BP 131/81; PULSE 93; RESP 21; TEMP 97.9; O2SAT 99
[2023-05-04] MEDS: AMIODARONE HCL 200 MG TAB PO SCH ×2 (09:33→16:27)
[2023-05-04] MEDS: APIXABAN 5 MG TABLET PO SCH ×2 (09:33→16:28)
[2023-05-04] MEDS: PAROXETINE HCL 20 MG TAB PO SCH (09:33)
[2023-05-04] MEDS: CELECOXIB 200 MG CAP PO SCH ×2 (09:33→16:27)
[2023-05-04] MEDS: Vancomycin IV 1 GM in SODIUM CHLORIDE 0.9% 250ML 250 ML IV SCH (09:33)
[2023-05-04] MEDS: SODIUM CHLORIDE 1 GM TAB PO SCH ×2 (09:33→16:28)
[2023-05-04] MEDS: SODIUM CHLORIDE 0.9% 1000ML 1,000 ML IV SCH ×2 (09:34→16:28)
[2023-05-04] MEDS: HYDROCODONE/APAP 7.5MG-325MG 1 EA TAB PO PRN ×2 (09:34→15:01)
[2023-05-04 12:00] VITALS: BP_SYST 142; PULSE 93; RESP 21; TEMP 98; O2SAT 99
[2023-05-04] MEDS: BUPROPION HCL SR 150 MG TAB PO SCH (12:10)
[2023-05-04] MEDS: IRON SUCROSE 100 MG in SODIUM CHLORIDE 0.9% 100 ML IV SCH (15:04)
[2023-05-04 15:25] VITALS: PULSE 95; RESP 16; O2SAT 94
[2023-05-04 16:24] VITALS: BP 126/86; PULSE 95; RESP 20; O2SAT 98
[2023-05-05] MEDS ORDERED: MUPIROCIN 2% OINT 22 GM TUBE TOP SCH (09:00)
== END 2023-05-04 20:40 | DRG 468 ==
LOC: OR 09:12 → PACU V 15:35 → MED/SURG 16:55
PROVIDERS: ADMIT Specialist; ATTEND Specialist
PROC: 0SPB0JZ Removal of Synthetic Substitute from Left Hip Joint, Open Approach (ICD-10-PCS; 2023-04-29)
PROC: 0SRB0EZ Replacement of Left Hip Joint with Articulating Spacer, Open Approach (ICD-10-PCS; 2023-04-29)
PROC: 0SBB0ZZ Excision of Left Hip Joint, Open Approach (ICD-10-PCS; 2023-04-29)
PROC: 02HV33Z Insertion of Infusion Device into Superior Vena Cava, Percutaneous Approach (ICD-10-PCS; principal; 2023-04-30)
DX: T84.52XA Infection and inflammatory reaction due to internal left hip prosthesis, initial encounter (principal); J45.909 Unspecified asthma, uncomplicated; M19.90 Unspecified osteoarthritis, unspecified site; F41.9 Anxiety disorder, unspecified; D64.9 Anemia, unspecified; I11.9 Hypertensive heart disease without heart failure; E78.5 Hyperlipidemia, unspecified; I48.0 Paroxysmal atrial fibrillation; E03.9 Hypothyroidism, unspecified; E66.9 Obesity, unspecified; Z68.36 Body mass index [BMI] 36.0-36.9, adult; A49.02 Methicillin resistant Staphylococcus aureus infection, unspecified site; Z20.822 Contact with and (suspected) exposure to COVID-19; Z79.01 Long term (current) use of anticoagulants; Z60.2 Problems related to living alone
CPT/HCPCS: 0223U; 36415; 36569; 71045; 72170; 80048; 80053; 80202; 82948; 83036; 83540; 83735; 84550; 85014; 85018; 85025; 86850; 86900; 86920; 87071; 87075; 87186; 87205; 94799; 96361; 99252; C1713; C1776; J0171; J1100; J1170; J1756; J1885; J2001; J2370; J2405; J2710; J2795; J3370; J7030; J7040; J7050